=== PATIENT | male | born 1960 | race Two or more races ===

== ENCOUNTER 2021-12-25 14:57 | Inpatient (IN) | payer MEDICAID ==
[~2021-12-25] VITALS: Ht 165.1 cm; Wt 64.9 kg
[2021-12-25] MEDS ORDERED: KETOROLAC 30MG/ML VIAL IV STA (15:26)
[2021-12-25] MEDS ORDERED: SODIUM CHLORIDE 0.9% 1,000 ML IV ONE (15:30)
[2021-12-25 16:05] LABS: BASOPHILS % 0.3 % (0.0-2.0); EOSINOPHILS % 0.6 % (0.0-5.0); HEMOGLOBIN. 12.1 g/dL (14.0-18.0); MEAN CORPUSCULAR HEMOGLOBIN 32.7 pg (28.0-32.0); MEAN CORPUSCULAR VOLUME 91.8 fL (80.0-94.0); MEAN PLATELET VOLUME 7.8 fl (7.4-10.4); MONOCYTES % 7.5 % (2.0-8.0); NEUTROPHILS % 66.6 % (40.0-76.0); PLATELET 284 x1000/uL (130-400); RED CELL DISTRIBUTION WIDTH 13.5 % (11.6-14.6)
[2021-12-25 16:09] LABS: CHLORIDE 111 mEq/L (98-107)
[2021-12-25 16:14] LABS: ETHANOL BLOOD < 10 mg/dL; PARTIAL THROMBOPLASTIN TIME 25.1 sec (23.4-31.0); PROTHROMBIN TIME 10.5 sec (9.6-11.0)
[2021-12-25 18:31] LABS: CLARITY URINE CLEAR (CLEAR); COLOR URINE YELLOW (YELLOW); KETONES URINE NEGATIVE (NEGATIVE); LEUKOCYTE ESTERASE URINE NEGATIVE (NEGATIVE); NITRITE URINE NEGATIVE (NEGATIVE); OCCULT BLOOD URINE NEGATIVE (NEGATIVE); PROTEIN URINE NEGATIVE (NEGATIVE); SPECIFIC GRAVITY URINE 1.007 (1.005-1.030); UROBILINOGEN URINE 0.2 E.U./dL (0.2-1.0)
[2021-12-25 19:04] LABS: *AMPHETAMINES SCREEN URINE NEGATIVE (NEGATIVE); *BARBITURATES SCREEN URINE NEGATIVE (NEGATIVE); *BENZODIAZEPINES SCREEN URINE NEGATIVE (NEGATIVE); *COCAINE SCREEN URINE NEGATIVE (NEGATIVE); METHADONE URINE SCREEN NEGATIVE (NEGATIVE); OPIATES URINE SCREEN NEGATIVE (NEGATIVE)
[2021-12-25 19:05] LABS: CANNABINOID URINE SCREEN NEGATIVE (NEGATIVE); PHENCYCLIDINE URINE SCREEN NEGATIVE (NEGATIVE)
[2021-12-25] MEDS ORDERED: ONDANSETRON HCL 4MG TABLET PO PRN (21:30)
[2021-12-25] MEDS ORDERED: CLONIDINE 0.1MG TABLET PO PRN (21:30)
[2021-12-25] MEDS: ONDANSETRON HCL 4MG/2ML INJ IV PRN (23:54)
[2021-12-25] MEDS: LORAZEPAM 2MG/ML CPJ IV PRN (23:55)
[2021-12-26 03:10] VITALS: BP 139/79
[2021-12-26] MEDS: LORAZEPAM 2MG/ML CPJ IV PRN (05:36)
[2021-12-26] MEDS: ONDANSETRON HCL 4MG/2ML INJ IV PRN (05:36)
[2021-12-26] MEDS: TRAMADOL 50MG TABLET PO PRN ×2 (05:37→13:05)
[2021-12-26 08:00] VITALS: BP 157/102
[2021-12-26] MEDS: ACETAMINOPHEN 650MG/20.3ML UDC PO PRN (08:23)
[2021-12-26] MEDS ORDERED: POTASSIUM CHLORIDE 20MEQ TABLET SR PO NR (10:00)
[2021-12-26 10:18] LABS: BASOPHILS % 0.5 % (0.0-2.0); EOSINOPHILS % 0.5 % (0.0-5.0); HEMOGLOBIN. 11.8 g/dL (14.0-18.0); LYMPHOCYTES % 19.3 % (20.0-50.0); MEAN CORPUSCULAR HEMOGLOBIN 32.3 pg (28.0-32.0); MEAN CORPUSCULAR VOLUME 92.8 fL (80.0-94.0); MONOCYTES % 7.5 % (2.0-8.0); NEUTROPHILS % 72.2 % (40.0-76.0); PLATELET 271 x1000/uL (130-400); RED BLOOD CELL COUNT 3.66 mill/uL (4.7-6.1); RED CELL DISTRIBUTION WIDTH 13.4 % (11.6-14.6)
[2021-12-26 10:40] LABS: CHLORIDE 109 mEq/L (98-107)
[2021-12-26 12:00] VITALS: BP 128/87
[2021-12-26 16:00] VITALS: BP 148/87
[2021-12-26] MEDS ORDERED: NALOXONE HCL 0.4MG/ML VIAL IV PRN (19:15)
[2021-12-26 20:00] VITALS: BP 151/93
[2021-12-27] VITALS: BP 147/90
[2021-12-27] MEDS: TRAMADOL 50MG TABLET PO PRN (01:44)
[2021-12-27 04:00] VITALS: BP 137/48
[2021-12-27] MEDS: ACETAMINOPHEN 650MG/20.3ML UDC PO PRN (05:15)
[2021-12-27] MEDS ORDERED: ASPIRIN 81MG TABLET PO SCH (10:00)
[2021-12-27 14:12] VITALS: BP 161/99
== END 2021-12-27 14:00 | disposition home or self-care (01) | DRG 384 ==
LOC: ER 14:57 → 8WST 19:26 → ENRESERV 19:44
PROVIDERS: ADMIT Hospitalist; ATTEND Hospitalist
DX: S80.01XA Contusion of right knee, initial encounter (principal); G93.40 Encephalopathy, unspecified; E43 Unspecified severe protein-calorie malnutrition; S40.012A Contusion of left shoulder, initial encounter; W18.39XA Other fall on same level, initial encounter; Y93.01 Activity, walking, marching and hiking; Z68.23 Body mass index [BMI] 23.0-23.9, adult; Z59.01 Sheltered homelessness; Y92.410 Unspecified street and highway as the place of occurrence of the external cause; Y99.8 Other external cause status
CPT/HCPCS: 36415; 71045; 73030; 73560; 80048; 80053; 80305; 80320; 81003; 82140; 83880; 84484; 85025; 93005; 97162; 99285; J1885; J2060; J2405; J7030; G0480